=== PATIENT | male | born 1965 | race Native Hawaiian/Other Pacific Islander ===

== ENCOUNTER 2017-03-06 05:55 | Day surgery (SDC) | payer MEDICARE, OTHER ==
[2017-03-01 13:07] VITALS: BMI 35.2
[2017-03-06] MEDS ORDERED: SODIUM CHLORIDE 0.9% 1,000 ML IV SCH (06:03)
[2017-03-06 06:33] VITALS: TEMP 97.8
[2017-03-06] MEDS ORDERED: PROPOFOL 10 MG/ML 20 ML VIAL IV ONE (07:39)
[2017-03-06] MEDS ORDERED: LIDOCAINE 1% INJ 10MG/ML (20 ML MDV) ONE (07:39)
[2017-03-06 07:54] VITALS: RESP 16
[2017-03-06 09:28] VITALS: BP 100/65; PULSE 53
--- NOTE | 2017-03-06 13:51 | CE ---
CARDIAC ELECTROPHYSIOLOGY REPORT Max has a history of cardiomyopathy and a dual-chamber ICD. He was brought in for DFT testing under anesthesia. The P waves were excellent. Excellent sensing was noted. Pacing threshold was 0.5 V at 0.4 milliseconds. Ventricular pacing threshold 0.5 V at 0.4 milliseconds. R waves with excellent sensing was noted. Impedances were stable. DFT testing was performed under anesthesia. A shock and T wave protocol was used to induce ventricular fibrillation. This was adequately and appropriately detected. sensitivity successfully internally defibrillated with 10 joule shock. The charge time was 1.9 seconds. Shock impedance 93 ohms, delivered 10 joules. The device was then reprogrammed. The sensitivity was reprogrammed to 0.3 mV, appropriate antitachycardia pacing cardioversion defibrillation programmed VT zone has been programmed to 140 beats per minute. The patient has had a history of inducible slow ventricular tachycardia from the symptom in the past. The patient tolerated the procedure well without any acute complications. PLAN: The patient may go home when fully awake and continue with cardiac medications. Follow up with Dr. Garcia as before. MMODL / IJN: [id number] /
== END 2017-03-06 09:41 | disposition home or self-care (01) ==
LOC: CATHEP 05:55
PROVIDERS: ATTEND Internal Medicine Clinical Cardiac Electrophysiology
DX: I25.5 Ischemic cardiomyopathy (principal); Z45.02 Encounter for adjustment and management of automatic implantable cardiac defibrillator; F17.210 Nicotine dependence, cigarettes, uncomplicated; Z98.61 Coronary angioplasty status; I10 Essential (primary) hypertension; E78.5 Hyperlipidemia, unspecified; Z79.82 Long term (current) use of aspirin; Z79.899 Other long term (current) drug therapy
CPT/HCPCS: 93642; J2001; J2704

== ENCOUNTER 2017-08-04 01:34 | Observation (INO) | payer MEDICARE, OTHER ==
[2017-08-04 02:01] LABS: Basophils # (A) 0.1 k/uL (0-0.2); Basophils % (A) 1 %; Eosinophils # (A) 0.5 k/uL (0-0.7); Eosinophils % (A) 5 %; HCT 52.1 % (39.0-53.0); HGB 17.3 gm/dL (13.0-17.5); Lymphocytes # (A) 3.8 k/uL (1.0-4.8); Lymphocytes % (A) 35 %; MCH 30.3 pg (25.0-35.0); MCHC 33.3 g/dL (31.0-37.0); Mean Platelet Volume 6.4; Monocytes # (A) 0.6 k/uL (0-1.0); Monocytes % (A) 5 %; Neutrophils # (A) 5.9 k/uL (1.3-7.7); Neutrophils % (A) 53 %; Platelet Count 303 k/uL (150-450); RBC 5.72 m/uL (4.30-5.90); RDW 12.8 % (11.5-15.5); WBC 11.1 k/uL (3.8-10.6)
--- NOTE | 2017-08-04 02:02 | ED ---
Arrhythmia/Palpitations HPI <José Luis Blanton - Last Filed: 08/04/17 02:02> - General Source: patient, family, RN notes reviewed Mode of arrival: ambulatory Limitations: no limitations <Stormy Ann - Last Filed: 08/04/17 03:04> - General Chief Complaint: Arrhythmia/Palpitations Stated Complaint: Chest Pain Time Seen by Provider: 08/04/17 01:46 - History of Present Illness Initial Comments: This is a 51-year-old male with history of previous MIs who presents to the emergency department with chief complaint of palpitations. Patient states that he has had 2 MIs in the past. He states that he has a stent placed in his LAD and also has a defibrillator. Patient states that he woke up at approximately 12:30 AM this morning and was feeling uncomfortable. He states he could not fall back to sleep. He states that he felt some "fluttering" in his chest but denies any actual chest pain or pressure. He states that he felt like his throat was tightening up and complains of burning in his left arm and left leg. He states that this sensation was worsened with coughing. He denies any shortness of breath, nausea or vomiting, diaphoresis. He denies any abdominal pain. (Stormy Ann) - Related Data Home Medications Medication Instructions Recorded Confirmed Furosemide [Lasix] 40 mg PO DAILY 02/01/14 08/04/17 Lisinopril [Zestril] 1.25 mg PO DAILY 02/01/14 08/04/17 Pravastatin Sodium 80 mg PO HS 02/06/14 08/04/17 Metoprolol Tartrate 25 mg PO BID 03/01/17 08/04/17 Spironolactone [Aldactone] 25 mg PO DAILY 03/01/17 08/04/17 Previous Rx's Medication Instructions Recorded Aspirin 81 mg PO DAILY #30 chewable 02/09/14 Allergies Allergy/AdvReac Type Severity Reaction Status Date / Time No Known Allergies Allergy Verified 08/04/17 01:39 Review of Systems ROS Other: All systems not noted in ROS Statement are negative. <José Luis Blanton - Last Filed: 08/04/17 02:02> ROS Other: All systems not noted in ROS Statement are negative. <Stormy Ann - Last Filed: 08/04/17 03:04> ROS Statement: Those systems with pertinent positive or pertinent negative responses have been documented in the HPI. Past Medical History Past Medical History: Coronary Artery Disease (CAD), Hyperlipidemia, Hypertension, Myocardial Infarction (non Q-wave) Additional Past Medical History / Comment(s): may 2013, jun, jul 2013. see Dr Mayorga's H&P Last Myocardial Infarction Date:: jul 2013 History of Any Multi-Drug Resistant Organisms: None Reported Past Surgical History: AICD, Heart Catheterization With Stent Additional Past Surgical History / Comment(s): jun 2013 with heart stents; jul 2013 defib left upper chest Past Anesthesia/Blood Transfusion Reactions: No Reported Reaction Date of Last Stent Placement:: jun 2013 Type of Cardiac Device: AICD Device Placement Date:: jul 2013 Past Psychological History: No Psychological Hx Reported Smoking Status: Current every day smoker - Past Family History Mother Family Medical History: Diabetes Mellitus <Stormy Ann - Last Filed: 08/04/17 03:04> General Exam <José Luis Blanton - Last Filed: 08/04/17 02:02> Limitations: no limitations <MarissaStormy - Last Filed: 08/04/17 03:04> - General Exam Comments Initial Comments: General: Awake and alert, well-developed; in no apparent distress. and daughter are at bedside. HEENT: Head atraumatic, normocephalic. Pupils are equal, round and reactive to light. Extraocular movements intact. Oropharynx moist without erythema or exudate. Neck: Supple. Normal ROM. Cardiovascular: Regular rate and rhythm. No murmurs, rubs or gallops. Chest symmetrical. Respiratory: Lungs clear to auscultation bilaterally. No wheezes, rales or rhonchi. Normal respiratory effort with no use of accessory muscles. Abdomen: Soft, non-tender, non-distended. No rigidity, rebound or guarding. Normal bowel sounds in all 4 quadrants. Musculoskeletal: Normal ROM, no tenderness, strength 5/5 bilateral upper and lower extremities. No pedal edema. Pedal pulses are 2+ equal and palpable bilaterally. Skin: [place], warm and dry without rashes. Neurological: Alert and oriented x3. CN II-XII grossly intact. Speech is fluent and answers are appropriate. No focal neuro deficits. Finger-nose testing normal. No ataxia noted. NIH score equals 0. Psychiatric: Normal mood and affect. No overt signs of depression or anxiety noted. (Stormy Ann) Vital Signs 08/04/17 01:37 Temperature 97 F L Pulse Rate 83 Respiratory 20 Rate Blood Pressure 112/70 O2 Sat by Pulse 99 Oximetry Medical Decision Making <José Luis Blanton - Last Filed: 08/04/17 02:02> - Lab Data Result diagrams: 08/04/17 01:50 08/04/17 01:50 - Radiology Data Radiology results: report reviewed <Stormy Ann - Last Filed: 08/04/17 03:04> - Medical Decision Making EKG shows atrial paced rhythm at 71 bpm NM interval is 220 QRS is 90 QT interval 404 QTC is 439. Patient also has PVCs on this EKG there are no signs of ST segment elevation or depression. (José Luis Blanton) This is a 51-year-old male who presents to the emergency department with chief complaint of palpitations. Patient has a history of 2 myocardial infarctions and has a stent in his LAD. He also has a defibrillator. Patient presented to the emergency Department with complaint of chest fluttering and burning of his left arm and leg. Patient also felt like his throat was tight. Patient's vital signs are stable and he appears to be in no acute distress. Troponin and cardiac profile was within normal limits. Patient did have a slightly elevated white blood cell count of 11.1. Coags are were within normal limits. Chest x- ray revealed no acute abnormalities. CT brain without contrast was normal. Patient is neurovascularly intact. NIH score of 0. He was given aspirin and Nitropaste. Patient will be admitted for observation to Dr. Ireland with a diagnosis of atypical angina. Findings and plan were discussed with patient who is in agreement. All questions were answered. (Stormy Ann) - Lab Data Lab Results 08/04/17 08/04/17 08/04/17 Range/Units 01:50 01:50 01:50 WBC 11.1 H (3.8-10.6) k/uL RBC 5.72 (4.30-5.90) m/uL Hgb 17.3 (13.0-17.5) gm/dL Hct 52.1 (39.0-53.0) % MCV 91.0 (80.0-100.0) fL MCH 30.3 (25.0-35.0) pg MCHC 33.3 (31.0-37.0) g/dL RDW 12.8 (11.5-15.5) % Plt Count 303 (150-450) k/uL Neutrophils % 53 % Lymphocytes % 35 % Monocytes % 5 % Eosinophils % 5 % Basophils % 1 % Neutrophils # 5.9 (1.3-7.7) k/uL Lymphocytes # 3.8 (1.0-4.8) k/uL Monocytes # 0.6 (0-1.0) k/uL Eosinophils # 0.5 (0-0.7) k/uL Basophils # 0.1 (0-0.2) k/uL PT (9.0-12.0) sec INR (<1.2) APTT (22.0-30.0) sec Sodium 140 (137-145) mmol/L Potassium 3.9 (3.5-5.1) mmol/L Chloride 103 (98-107) mmol/L Carbon Dioxide 26 (22-30) mmol/L Anion Gap 11 mmol/L BUN 13 (9-20) mg/dL Creatinine 0.90 (0.66-1.25) mg/dL Est GFR (MDRD) Af Amer >60 (>60 ml/min/1.73 sqM) Est GFR (MDRD) Non-Af >60 (>60 ml/min/1.73 sqM) Glucose 103 H (74-99) mg/dL Calcium 9.6 (8.4-10.2) mg/dL Magnesium 2.1 (1.6-2.3) mg/dL Total Bilirubin 0.3 (0.2-1.3) mg/dL AST 25 (17-59) U/L ALT 41 (21-72) U/L Alkaline Phosphatase 105 (38-126) U/L Total Creatine Kinase 77 (55-170) U/L CK-MB (CK-2) 0.3 (0.0-2.4) ng/mL CK-MB (CK-2) Rel Index 0.4 Troponin I <0.012 (0.000-0.034) ng/mL Total Protein 7.1 (6.3-8.2) g/dL Albumin 3.9 (3.5-5.0) g/dL 08/04/17 Range/Units 01:50 WBC (3.8-10.6) k/uL RBC (4.30-5.90) m/uL Hgb (13.0-17.5) gm/dL Hct (39.0-53.0) % MCV (80.0-100.0) fL MCH (25.0-35.0) pg MCHC (31.0-37.0) g/dL RDW (11.5-15.5) % Plt Count (150-450) k/uL Neutrophils % % Lymphocytes % % Monocytes % % Eosinophils % % Basophils % % Neutrophils # (1.3-7.7) k/uL Lymphocytes # (1.0-4.8) k/uL Monocytes # (0-1.0) k/uL Eosinophils # (0-0.7) k/uL Basophils # (0-0.2) k/uL PT 9.7 (9.0-12.0) sec INR 1.0 (<1.2) APTT 23.3 (22.0-30.0) sec Sodium (137-145) mmol/L Potassium (3.5-5.1) mmol/L Chloride (98-107) mmol/L Carbon Dioxide (22-30) mmol/L Anion Gap mmol/L BUN (9-20) mg/dL Creatinine (0.66-1.25) mg/dL Est GFR (MDRD) Af Amer (>60 ml/min/1.73 sqM) Est GFR (MDRD) Non-Af (>60 ml/min/1.73 sqM) Glucose (74-99) mg/dL Calcium (8.4-10.2) mg/dL Magnesium (1.6-2.3) mg/dL Total Bilirubin (0.2-1.3) mg/dL AST (17-59) U/L ALT (21-72) U/L Alkaline Phosphatase (38-126) U/L Total Creatine Kinase (55-170) U/L CK-MB (CK-2) (0.0-2.4) ng/mL CK-MB (CK-2) Rel Index Troponin I (0.000-0.034) ng/mL Total Protein (6.3-8.2) g/dL Albumin (3.5-5.0) g/dL - Radiology Data Chest x-ray impression: No active cardiopulmonary disease. Normal heart. No change. CT brain without contrast impression: Negative computed tomography scan of the brain. (Stormy Ann) Disposition <José Luis Blanton - Last Filed: 08/04/17 02:02> Time of Disposition: 03:00 <Stormy Ann - Last Filed: 08/04/17 03:04> Clinical Impression: Atypical angina Disposition: ADMITTED IP TO THIS [facility] Condition: Stable Referrals: None,Stated [REFERRING] - 1-2 days
[2017-08-04 02:09] LABS: ALT 41 U/L (21-72); AST 25 U/L (17-59); Albumin 3.9 g/dL (3.5-5.0); Alkaline Phosphatase 105 U/L (38-126); Anion Gap 11 mmol/L; Blood Urea Nitrogen 13 mg/dL (9-20); Calcium 9.6 mg/dL (8.4-10.2); Carbon Dioxide 26 mmol/L (22-30); Chloride 103 mmol/L (98-107); Glucose 103 mg/dL (74-99); Potassium 3.9 mmol/L (3.5-5.1); Sodium 140 mmol/L (137-145); Total Bilirubin 0.3 mg/dL (0.2-1.3); Total Protein 7.1 g/dL (6.3-8.2)
--- NOTE | 2017-08-04 02:09 | XR ---
EXAMINATION TYPE: XR chest 2V DATE OF EXAM: 08/04/2017 COMPARISON: 01/17/2013 HISTORY: Dysrhythmia TECHNIQUE: Frontal and lateral views of the chest are obtained. FINDINGS: There is no heart failure nor confluent pneumonic infiltrate. Heart and mediastinum are no rmal. There is left axillary pacemaker with the lead tips in the right ventricle. There are chest michelet ds. There is no sign of pleural effusion. IMPRESSION: No active cardiopulmonary disease. Normal heart. No change.
[2017-08-04 02:15] LABS: Partial Thromboplastin Time 23.3 sec (22.0-30.0); Prothrombin Time 9.7 sec (9.0-12.0)
--- NOTE | 2017-08-04 02:19 | CT ---
EXAMINATION TYPE: CT brain wo con DATE OF EXAM: 08/04/2017 COMPARISON: NONE HISTORY: Left-sided numbness CT DLP: mGycm Automated exposure control for dose reduction was used. FINDINGS: Ventricles and sulci appear normal. There is no mass effect nor midline shift. There is no sign of in tracranial hemorrhage. The calvarium appears intact. IMPRESSION: NEGATIVE CT SCAN OF THE BRAIN.
[2017-08-04 02:24] LABS: Creatine Kinase 77 U/L (55-170)
[2017-08-04 02:36] LABS: Creatine Kinase MB 0.3 ng/mL (0.0-2.4); Troponin I <0.012 ng/mL (0.000-0.034)
[2017-08-04] MEDS ORDERED: NITROGLYCERIN OINT 1 INCH/GM PACKET TOPICAL STA (02:50)
[2017-08-04] MEDS ORDERED: ASPIRIN 81 MG PO STA (02:50)
[2017-08-04 04:27] VITALS: BMI 35.4
[2017-08-04] MEDS ORDERED: NITROGLYCERIN OINT 1 INCH/GM PACKET TOPICAL SCH (06:00)
[2017-08-04] MEDS ORDERED: NALOXONE 0.4 MG/ML 1 ML VIAL IV PRN (07:08)
--- NOTE | 2017-08-04 07:08 | P.HPIM ---
History of Present Illness H&P Date: 08/04/17 Chief Complaint: Palpitations 51-year-old male with history of CAD. Patient presented due to waking up will sudden in the middle of the night at 12:30 AM having uneasy feeling in his chest with palpitations and tightness without shortness of breath, no dizziness nor lightheadedness he denies any sweating. But when he sneezed he felt some burning sensation in his left arm and left leg. Patient expresses that in the past when he had heart attacks presentation was not typical he had 2 attacks in the past and both had atypical presentations so he was concerned that this could be another heart attack going on. He reported that the event lasted for about 2 hours when he was having uneasy sensation in the chest feeling tight and having the palpitations he was asking a family member to drive him to the ER symptoms started improving when he got to the ER and received the aspiration. Patient currently feels completely fine he sees Dr. Garcia for cardiology Patient was admitted under observation to rule out acute coronary syndrome. EKG showed atrial paced rhythm with prolonged AV conduction. Patient also reported that he is compliant with his medications and there were no recent changes, he denies taking any illegal drugs or alcohol. Review of Systems Constitutional: Patient denies fever, denies chills, denies night sweating, denies significant weight changes Eyes: Patient denies visual changes, denies eye pain ENT: Patient denies ear pain, denies rhinorrhea, denies sore throat Cardiovascular: As per HPI, patient denies peripheral leg edema, denies orthopnea, denies paroxysmal nocturnal dyspnea Respiratory:Patient denies cough, denies wheezing, denies shortness of breath Gastrointestinal: Patient denies diarrhea, denies constipation, denies nausea , denies vomiting, denies abdominal pain Genitourinary: Patient denies dysuria, denies hematuria, denies changes in urinary habits, denies genital lesions Musculoskeletal: Patient denies muscle pain, denies joint pain Psychiatric: Patient denies changes in mood or memory, denies suicidal ideation, denies anxiety Endocrine: Patient denies heat intolerance, denies cold intolerance, denies excessive thirst, denies polyuria Neurological: Patient denies focal neurologic deficits, denies weakness, denies numbness, denies tingling Hem/Lymphatic: Patient denies bleeding tendency, denies bruising, denies swollen lymph glands Allergic/Immun: Patient denies recent allergic reactions Skin: Patient denies rashes, denies pruritis, denies ulcers Past Medical History Past Medical History: Coronary Artery Disease (CAD), Hyperlipidemia, Hypertension, Myocardial Infarction (non Q-wave) Additional Past Medical History / Comment(s): may 2013, jun, jul 2013. see Dr Mayorga's H&P Last Myocardial Infarction Date:: jul 2013 History of Any Multi-Drug Resistant Organisms: None Reported Past Surgical History: AICD, Appendectomy, Heart Catheterization With Stent Additional Past Surgical History / Comment(s): jun 2013 with heart stents; jul 2013 defib left upper chest, right big toe amputation due to work injury Past Anesthesia/Blood Transfusion Reactions: No Reported Reaction Date of Last Stent Placement:: jun 2013 Type of Cardiac Device: AICD Device Placement Date:: jul 2013 Past Psychological History: No Psychological Hx Reported Additional Psychological History / Comment(s): He is not , lives with his father who is a primary caregiver for. Used to work in construction and in factory. Relates to prior utilization of recreational drugs and alcohol in the past. He does not have experience. He does not have animal exposures. Smoking Status: Current every day smoker Past Alcohol Use History: None Reported Additional Past Alcohol Use History / Comment(s): has smoked since age 15 6- cigarettes/day Past Drug Use History: None Reported - Past Family History Mother Family Medical History: Diabetes Mellitus Family Additional Family Medical History / Comment(s): History of CAD in his uncles and that Medications and Allergies Home Medications Medication Instructions Recorded Confirmed Type Furosemide [Lasix] 40 mg PO DAILY 02/01/14 08/04/17 History Lisinopril [Zestril] 1.25 mg PO DAILY 02/01/14 08/04/17 History Pravastatin Sodium 80 mg PO HS 02/06/14 08/04/17 History Aspirin 81 mg PO DAILY #30 chewable 02/09/14 08/04/17 Rx Metoprolol Tartrate 25 mg PO BID 03/01/17 08/04/17 History Spironolactone [Aldactone] 25 mg PO DAILY 03/01/17 08/04/17 History Allergies Allergy/AdvReac Type Severity Reaction Status Date / Time No Known Allergies Allergy Verified 08/04/17 01:39 Physical Exam Vitals: Vital Signs Temp Pulse Pulse Resp BP BP Pulse Ox 08/04/17 04:00 97.9 F 58 L 16 100/56 98 08/04/17 03:21 97.2 F L 54 L 18 102/69 99 08/04/17 01:37 97 F L 83 20 112/70 99 Intake and Output 08/03/17 08/03/17 08/04/17 14:59 22:59 06:59 Other: Voiding Method Toilet # Voids 2 Weight 111.9 kg Patient Weight 08/04/17 06:59 Weight 111.9 kg Constitutional: No acute distress, conversant, pleasant Eyes: Anicteric sclerae, moist conjunctiva, no lid-lag Pupils equal round reactive to light ENMT: NC/AT Oropharynx clear, no erythema, exudates Neck: Supple, FROM, no masses, or JVD No carotid bruits No thyromegaly Lungs: Clear to auscultation Clear to percussion Normal respiratory effort, no accessory muscle use Cardiovascular: Heart regular in rate and rhythm, distant heart sounds No murmurs, gallops, or rubs No peripheral edema Abdominal: Soft Nontender, no guarding, rebound or rigidity Abdomen moving with respiration Normoactive bowel sounds No hepatomegaly, No splenomegaly No palpable mass No abdominal wall hernia noted Skin: Normal temperature, tone, texture, turgor No induration No subcutaneous nodules No rash, lesions No ulcers Extremities: No digital cyanosis , patient has right fifth of dictation No clubbing Pedal pulses intact and symmetrical Radial pulses intact and symmetrical No calf tenderness Psychiatric: Alert and oriented to person, place and time Appropriate affect fair judgment Neuro Muscles Strength 5/5 in all 4 extremities Sensation to light touch grossly present throughout Cranial nerves II-XII grossly intact No focal sensory deficits Lymphatics: no palpable cervical or supraclavicular , or inguinal lymph nodes Results CBC & Chem 7: 08/04/17 01:50 08/04/17 01:50 Labs: Abnormal Lab Results - Last 24 Hours (Table) 08/04/17 08/04/17 Range/Units 01:50 01:50 WBC 11.1 H (3.8-10.6) k/uL Glucose 103 H (74-99) mg/dL Thrombosis Risk Factor Assmnt - Choose All That Apply Each Factor Represents 1 point: Age 41-60 years, Obesity (BMI >25) Thrombosis Risk Factor Assessment Total Risk Factor Score: 2 Thrombosis Risk Factor Assessment Level: Low Risk Assessment and Plan (1) Palpitations Narrative/Plan: Patient has an ICD device, his EKG is showing atrial paced rhythm with prolonged AV conduction Consider interrogation of the device Cardiology input Continue with metoprolol Follow-up electrolytes potassium and magnesium keep them above 4 and 2 respectively Current Visit: Yes Status: Acute Code(s): R00.2 - PALPITATIONS SNOMED Code (s): 13494768 (2) Atypical chest pain Narrative/Plan: Patient has multiple risk factors however presented with atypical chest pain/ tightness discomfort Troponins negative EKG showed no acute changes Continued psychotropics and cardiac monitoring Await cardiology input Obtain limited to the echo Current Visit: Yes Status: Acute Code(s): R07.89 - OTHER CHEST PAIN SNOMED Code(s): 032253296 (3) CAD (coronary artery disease) Narrative/Plan: Continue with aspirin and statin lisinopril metoprolol She has history of 2 stents in the past Current Visit: Yes Status: Chronic Code(s): I25.10 - ATHSCL HEART DISEASE OF [place] CORONARY ARTERY W/O ANG PCTRS SNOMED Code(s): 38259720 (4) Hypertension Narrative/Plan: Controlled now continue with lisinopril and metoprolol Current Visit: Yes Status: Chronic Code(s): I10 - ESSENTIAL (PRIMARY) HYPERTENSION SNOMED Code(s): 96479208 (5) Hyperlipidemia Narrative/Plan: Continue statin Current Visit: Yes Status: Chronic Code(s): E78.5 - HYPERLIPIDEMIA, UNSPECIFIED SNOMED Code(s): 72756796 (6) DVT prophylaxis Narrative/Plan: Heparin subcu 3 times a day Current Visit: Yes Status: Acute Code(s): ZOP8289 - SNOMED Code(s): 468996575 Plan: Surrogate decision-maker: Patient's son Jared CODE STATUS: Full code DVT prophylaxis: Heparin subcu 3 times a day Discussed with: Patient, ER, RN Anticipated discharge: [address]: Home A total of 50 minutes was spent on the care of this complex patient more than 50 % of the time was spent in counseling and care coordination.
[2017-08-04 08:43] LABS: Creatine Kinase 69 U/L (55-170)
[2017-08-04 08:55] LABS: Creatine Kinase MB 0.3 ng/mL (0.0-2.4); Troponin I <0.012 ng/mL (0.000-0.034)
[2017-08-04] MEDS ORDERED: METOPROLOL TARTRATE 25 MG TAB PO SCH (09:00)
[2017-08-04] MEDS ORDERED: FUROSEMIDE 40 MG TAB PO SCH (09:00)
[2017-08-04] MEDS ORDERED: LISINOPRIL 2.5 MG TAB PO SCH (09:00)
[2017-08-04] MEDS ORDERED: SPIRONOLACTONE 25 MG TAB PO SCH (09:00)
--- NOTE | 2017-08-04 09:08 | P.CRDCN ---
History of Present Illness Consult date: 08/04/17 Requesting physician: Crystal Ireland Consult reason: chest pain Chief complaint: Left arm and leg burning, throat tightness History of present illness: This is a 51-year-old gentleman who follows with Dr. Nicola Garcia in the office he has a history of hypertension, hyperlipidemia, nicotine dependence, patient underwent anterior myocardial infarction in 2012 at which time he underwent stent placement of the LAD. Patient also has ischemic cardiomyopathy with prior AICD implantation. Most recent echocardiogram with Doppler study was performed in 2015 which revealed an ejection fraction of 35%. According to the patient, he he woke up suddenly from sleep, states that he had significant pain and burning in his left arm and left leg, he states he could not get comfortable. Patient also states that he had a tight feeling in his lower throat area and occasional palpitations. He denies any chest discomfort, no difficulty in breathing. Patient states when he had his prior myocardial infarction, that he had significant tightness in his throat, this is why the patient was concerning came to the emergency room. Blood pressure on arrival here 112/70, heart rate in the 80s, this morning's blood pressure 92/50 with a heart rate in the 50s. His EKG shows an atrial paced rhythm with occasional PVC. Chest x-ray did not reveal any active cardiopulmonary disease. CAT scan of the brain normal. White blood cell count 11.1, hemoglobin 17.3, platelet count 303. Sodium 140, potassium 3.9, BUN 13, creatinine 0.9. Magnesium level 2.1 troponin 0.012. At the time of my examination this morning, patient no longer has any discomfort or numbness in his left leg or left arm. Denies any throat tightness this morning. Past Medical History Past Medical History: Coronary Artery Disease (CAD), Hyperlipidemia, Hypertension, Myocardial Infarction (non Q-wave) Additional Past Medical History / Comment(s): may 2013, jun, jul 2013. see Dr Mayorga's H&P Last Myocardial Infarction Date:: jul 2013 History of Any Multi-Drug Resistant Organisms: None Reported Past Surgical History: AICD, Appendectomy, Heart Catheterization With Stent Additional Past Surgical History / Comment(s): jun 2013 with heart stents; jul 2013 defib left upper chest, right big toe amputation due to work injury Past Anesthesia/Blood Transfusion Reactions: No Reported Reaction Date of Last Stent Placement:: jun 2013 Type of Cardiac Device: AICD Device Placement Date:: jul 2013 Past Psychological History: No Psychological Hx Reported Additional Psychological History / Comment(s): He is not , lives with his father who is a primary caregiver for. Used to work in construction and in factory. Relates to prior utilization of recreational drugs and alcohol in the past. He does not have experience. He does not have animal exposures. Smoking Status: Current every day smoker Past Alcohol Use History: None Reported Additional Past Alcohol Use History / Comment(s): has smoked since age 15 6- cigarettes/day Past Drug Use History: None Reported - Past Family History Mother Family Medical History: Diabetes Mellitus Family Additional Family Medical History / Comment(s): History of CAD in his uncles and that Medications and Allergies Home Medications Medication Instructions Recorded Confirmed Type Furosemide [Lasix] 40 mg PO DAILY 02/01/14 08/04/17 History Lisinopril [Zestril] 1.25 mg PO DAILY 02/01/14 08/04/17 History Pravastatin Sodium 80 mg PO HS 02/06/14 08/04/17 History Aspirin 81 mg PO DAILY #30 chewable 02/09/14 08/04/17 Rx Metoprolol Tartrate 25 mg PO BID 03/01/17 08/04/17 History Spironolactone [Aldactone] 25 mg PO DAILY 03/01/17 08/04/17 History Allergies Allergy/AdvReac Type Severity Reaction Status Date / Time No Known Allergies Allergy Verified 08/04/17 01:39 Physical Exam Vitals: Vital Signs Temp Pulse Pulse Pulse Resp BP BP 08/04/17 08:00 97.6 F 54 L 58 L 16 92/50 08/04/17 04:00 97.9 F 58 L 16 100/56 08/04/17 03:21 97.2 F L 54 L 18 102/69 08/04/17 01:37 97 F L 83 20 112/70 Pulse Ox 08/04/17 08:00 99 08/04/17 04:00 98 08/04/17 03:21 99 08/04/17 01:37 99 Intake and Output 08/03/17 08/04/17 08/04/17 22:59 06:59 14:59 Other: Voiding Method Toilet Toilet # Voids 2 Weight 111.9 kg PHYSICAL EXAMINATION: HEENT: Head is atraumatic, normocephalic. Pupils equal, round. Neck is supple. There is no elevated jugular venous pressure. HEART EXAMINATION: Heart S1, S2 normal. No murmur or gallop heard. CHEST EXAMINATION: Lungs are clear to auscultation and precussion. No chest wall tenderness is noted on palpation or with deep breathing. ABDOMEN: Soft, nontender. Bowel sounds are heard. No organomegaly noted. EXTREMITIES: 2+ peripheral pulses with no evidence of peripheral edema and no calf tenderness noted. NEUROLOGIC patient is awake, alert and oriented -3. . Results 08/04/17 01:50 08/04/17 01:50 Cardiac Enzymes 08/04/17 08/04/17 Range/Units 01:50 01:50 AST 25 (17-59) U/L CK-MB (CK-2) 0.3 (0.0-2.4) ng/mL Troponin I <0.012 (0.000-0.034) ng/mL Coagulation 08/04/17 Range/Units 01:50 PT 9.7 (9.0-12.0) sec APTT 23.3 (22.0-30.0) sec CBC 08/04/17 Range/Units 01:50 WBC 11.1 H (3.8-10.6) k/uL RBC 5.72 (4.30-5.90) m/uL Hgb 17.3 (13.0-17.5) gm/dL Hct 52.1 (39.0-53.0) % Plt Count 303 (150-450) k/uL Comprehensive Metabolic Panel 08/04/17 Range/Units 01:50 Sodium 140 (137-145) mmol/L Potassium 3.9 (3.5-5.1) mmol/L Chloride 103 (98-107) mmol/L Carbon Dioxide 26 (22-30) mmol/L BUN 13 (9-20) mg/dL Creatinine 0.90 (0.66-1.25) mg/dL Glucose 103 H (74-99) mg/dL Calcium 9.6 (8.4-10.2) mg/dL AST 25 (17-59) U/L ALT 41 (21-72) U/L Alkaline Phosphatase 105 (38-126) U/L Total Protein 7.1 (6.3-8.2) g/dL Albumin 3.9 (3.5-5.0) g/dL Current Medications Generic Name Dose Route Start Last Admin Trade Name Juan PRN Reason Stop Dose Admin Aspirin 325 mg 08/05/17 09:00 Aspirin PO DAILY [facility] Furosemide 40 mg 08/04/17 09:00 Lasix PO DAILY [facility] Lisinopril 1.25 mg 08/04/17 09:00 Zestril PO DAILY [facility] Metoprolol Tartrate 25 mg 08/04/17 09:00 Lopressor PO BID ANA Naloxone HCl 0.2 mg 08/04/17 07:08 Narcan IV Q2M PRN Opioid Reversal Nitroglycerin 1 inch 08/04/17 06:00 08/04/17 05:19 Nitro-Bid Oint TOPICAL Not Given Q6HR ANA Pravastatin Sodium 80 mg 08/04/17 21:00 Pravachol PO HS ANA Spironolactone 25 mg 08/04/17 09:00 Aldactone PO DAILY ANA Intake and Output 08/03/17 08/04/17 08/04/17 22:59 06:59 14:59 Other: Voiding Method Toilet Toilet # Voids 2 Weight 111.9 kg 08/04/17 01:50 08/04/17 01:50 EKG Interpretations (text) EKG shows an atrial paced rhythm with occasional PVC Assessment and Plan Plan: Assessment and plan #1 throat tightness, atypical symptoms for acute coronary syndrome. Troponin negative 1. EKG shows an atrial paced rhythm with occasional PVC. #2 left leg and left arm pain and numbness, CT of the brain negative #3 known history of coronary artery disease with prior anterior wall CT with LAD stenting in 2012 #4 ischemic cardiomyopathy with prior AICD # 5 hypertension #6 hyperlipidemia #7 nicotine dependence Plan We will obtain 2 subsequent troponins, patient symptoms very atypical for acute coronary syndrome. We will request an echocardiogram with Doppler study be performed. Decrease aspirin to 81 mg daily. Patient has an appointment with Dr. Nicola Garcia in the office Sunday morning as well as a device check. Further recommendations to follow. DNP note has been reviewed, I agree with a documented findings and plan of care. Patient was seen and examined.
[2017-08-04 12:09] VITALS: PULSE 58
[2017-08-04 12:12] VITALS: BP 106/56; RESP 18; TEMP 97.8
--- NOTE | 2017-08-04 12:43 | ECHOF ---
Referral Reason:palpitations, LVF, wall motion MEASUREMENTS -------- HEIGHT: 177.8 cm WEIGHT: 111.6 kg BP: 100/56 IVSd: 1.5 cm (0.6 - 1.1) LVIDd: 4.2 cm (3.9 - 5.3) LVPWd: 1.4 cm (0.6 - 1.1) EDV(Teich): 78 ml IVSs: 1.8 cm LVIDs: 3.5 cm LVPWs: 1.6 cm ESV(Teich): 52 ml EF(Teich): 33 % %FS: 16 % SV(Teich): 26 ml RVIDd: 2.8 cm (< 3.3) LVLd A4C: 7.2 cm LVEDV MOD A4C: 97 ml LVLs A4C: 7.0 cm LVESV MOD A4C: 64 ml LVEF MOD A4C: 35 % SV MOD A4C: 34 ml LVLd A2C: 7.0 cm LVEDV MOD A2C: 145 ml LVLs A2C: 6.6 cm LVESV MOD A2C: 101 ml LVEF MOD A2C: 30 % SV MOD A2C: 44 ml EF Biplane: 31 % LVEDV MOD BP: 120 ml LVESV MOD BP: 83 ml LALs A4C: 5.2 cm LAAs A4C: 10.0 cm LAESV A-L A4C: 16 ml LAESV MOD A4C: 14 ml LALs A2C: 4.3 cm LAAs A2C: 12.5 cm LAESV A-L A2C: 30 ml LAESV MOD A2C: 29 ml LAESV(A-L): 24 ml LAESV Index (A-L): 10.64 ml/m Ao Diam: 3.1 cm (2.0 - 3.7) LA Diam: 3.4 cm (2.7 - 3.8) AV Cusp: 1.9 cm (1.5 - 2.6) EPSS: 1.1 cm MV E Wood: 0.78 m/s MV DecT: 300 ms MV Dec Bremer: 2.6 m/s MV A Wood: 0.91 m/s MV E/A Ratio: 0.85 AV Vmax: 1.17 m/s AV maxP.43 mmHg TR Vmax: 1.55 m/s TR maxP.59 mmHg RAP: 5.00 mmHg RVSP: 14.59 mmHg MV EF SLOPE: 113.06 mm/s (70 - 150) MV EXCURSION: 2.08 cm (> 18.000) FINDINGS -------- Paced rhythm. This was a technically difficult study with suboptimal views. The left ventricular size is normal. There is moderate concentric left ventricular hypertrophy. T here is moderate global hypokinesis of LV . Overall left ventricular systolic function is moderate- severely impaired with, an EF between 30 - 35 %. Septal Hypokinesis [place] Hypokinesis. The right ventricle is normal in size. The right ventricular systolic function is moderately impair ed. Normal LA size by volume 22+/-6 ml/m2. Electronic pacemaker lead seen in the right ventricular cavity. RA appears enlarged. 3ml of Lumason was utilized for enhancement of images. The aortic valve is trileaflet, and appears structurally normal. No aortic stenosis or regurgitation. The mitral valve leaflets are mildly thickened. There is trace to mild mitral regurgitation. Trace tricuspid regurgitation present. Right ventricular systolic pressure is normal at < 35 mmHg. There is no evidence of pulmonary hypertension. The pulmonic valve was not well visualized. The aortic root size is normal. Normal inferior vena cava with less than 50% inspiratory collapse consistent with estimated right atr ial pressure of 15 mmHg. The pericardium is normal. There is no pericardial effusion. CONCLUSIONS -------- 1. Paced rhythm. 2. This was a technically difficult study with suboptimal views. 3. The left ventricular size is normal. 4. There is moderate concentric left ventricular hypertrophy. 5. There is moderate global hypokinesis of LV . 6. Overall left ventricular systolic function is moderate-severely impaired with, an EF between 30 - 35 %. 7. Septal Hypokinesis 8. [place] Hypokinesis. 9. The right ventricular systolic function is moderately impaired. 10. Normal LA size by volume 22+/-6 ml/m2. 11. Electronic pacemaker lead seen in the right ventricular cavity. 12. RA appears enlarged. 13. 3ml of Lumason was utilized for enhancement of images. 14. The aortic valve is trileaflet, and appears structurally normal. No aortic stenosis or regurgitat ion. 15. The mitral valve leaflets are mildly thickened. 16. There is trace to mild mitral regurgitation. 17. Trace tricuspid regurgitation present. 18. Right ventricular systolic pressure is normal at < 35 mmHg. 19. There is no evidence of pulmonary hypertension. 20. The pulmonic valve was not well visualized. 21. The aortic root size is normal. 22. Normal inferior vena cava with less than 50% inspiratory collapse consistent with estimated right atrial pressure of 15 mmHg. 23. There is no pericardial effusion. SUPPORT SERVICES TECH: Jameel Cowart RDCS
[2017-08-04 14:37] LABS: Creatine Kinase 68 U/L (55-170)
[2017-08-04 14:49] LABS: Creatine Kinase MB 0.3 ng/mL (0.0-2.4); Troponin I <0.012 ng/mL (0.000-0.034)
--- NOTE | 2017-08-04 15:54 | P.DS ---
Providers Date of admission: 08/04/17 03:24 Expected date of discharge: 08/04/17 Attending physician: Crystal Ireland MD Consults: 08/04/17 03:23 Consult Physician Urgent Consulting Provider: [facility] Consult Reason/Comments: Atypical angina Do you want consulting provider notified?: Yes Primary care physician: Elizabeth Heard - Discharge Diagnosis(es) (1) Atypical chest pain Current Visit: Yes Status: Acute (2) CAD (coronary artery disease) Current Visit: Yes Status: Chronic (3) Hypertension Current Visit: Yes Status: Chronic (4) Ischemic cardiomyopathy Current Visit: Yes Status: Acute Hospital Course: The patient is a 51-year-old male with a past history of coronary disease with stenting ischemic cardiomyopathy post ICD placement that was placed on observation for atypical chest pain, his EKG showed atrial paced rhythm with prolonged AV conduction, he had 3 sets of cardiac enzymes which are negative with no suggestion of any acute ischemia. His electrocardiogram showed an EF of 30-35% which was essentially unchanged from his prior echocardiogram. The patient was seen by cardiology Dr. Pendleton and subsequently cleared for discharge with plans to follow up in clinic. This discharge process took less than 30 minutes Patient Condition at Discharge: Stable Plan - Discharge Summary New Discharge Prescriptions: Continue Lisinopril [Zestril] 1.25 mg PO DAILY Furosemide [Lasix] 40 mg PO DAILY Pravastatin Sodium 80 mg PO HS Aspirin 81 mg PO DAILY #30 chewable Metoprolol Tartrate 25 mg PO BID Spironolactone [Aldactone] 25 mg PO DAILY Nitroglycerin Sl Tabs [Nitrostat] 0.4 mg SUBLINGUAL Q5M PRN PRN Reason: Chest Pain Discharge Medication List Furosemide [Lasix] 40 mg PO DAILY 02/01/14 [History] Lisinopril [Zestril] 1.25 mg PO DAILY 02/01/14 [History] Pravastatin Sodium 80 mg PO HS 02/06/14 [History] Aspirin 81 mg PO DAILY #30 chewable 02/09/14 [Rx] Metoprolol Tartrate 25 mg PO BID 03/01/17 [History] Spironolactone [Aldactone] 25 mg PO DAILY 03/01/17 [History] Nitroglycerin Sl Tabs [Nitrostat] 0.4 mg SUBLINGUAL Q5M PRN 08/04/17 [History] Follow up Appointment(s)/Referral(s): Angelina Garcia MD [STAFF PHYSICIAN] - 1 Week None,Stated [REFERRING] - 1-2 days Activity/Diet/Wound Care/Special Instructions: keep follow up appt with Dr. Destiny Garcia on 08/13/17.
[2017-08-04] MEDS ORDERED: PRAVASTATIN SODIUM 80 MG TAB PO SCH (21:00)
[2017-08-05] MEDS ORDERED: ASPIRIN 325 MG TAB PO SCH (09:00)
[2017-08-05] MEDS ORDERED: ASPIRIN 81 MG PO SCH (09:00)
== END 2017-08-04 16:30 | disposition home or self-care (01) ==
LOC: EC 01:34 → 3OBS 03:24
PROVIDERS: ADMIT Internal Medicine; ATTEND Internal Medicine
DX: R07.89 Other chest pain (principal); R00.2 Palpitations; R20.0 Anesthesia of skin; M79.602 Pain in left arm; M79.605 Pain in left leg; R07.0 Pain in throat; I25.10 Atherosclerotic heart disease of native coronary artery without angina pectoris; I25.2 Old myocardial infarction; E78.5 Hyperlipidemia, unspecified; I10 Essential (primary) hypertension; I25.5 Ischemic cardiomyopathy; D72.829 Elevated white blood cell count, unspecified; F17.210 Nicotine dependence, cigarettes, uncomplicated; E66.9 Obesity, unspecified; Z68.35 Body mass index [BMI] 35.0-35.9, adult; Z79.899 Other long term (current) drug therapy; Z95.5 Presence of coronary angioplasty implant and graft; Z95.810 Presence of automatic (implantable) cardiac defibrillator; Z83.3 Family history of diabetes mellitus; Z79.82 Long term (current) use of aspirin
CPT/HCPCS: 99285; 36415; 93005; 80053; 82550; 82553; 83735; 84484; 85025; 85610; 85730; 71046; 70450; G0378; C8929; Q9950; 93306

== ENCOUNTER 2018-03-14 19:25 | Emergency (ER) | payer MEDICARE ==
[2018-03-14 19:53] VITALS: RESP 18
--- NOTE | 2018-03-14 21:45 | XR ---
EXAMINATION TYPE: XR chest 2V DATE OF EXAM: 03/14/2018 COMPARISON: 08/04/2017 HISTORY: Chest pain TECHNIQUE: Frontal and lateral views of the chest are obtained. FINDINGS: There is no heart failure nor confluent pneumonic infiltrate. Costophrenic angles are nik r. Heart size is normal. There is left axillary pacemaker with the lead tips in the right ventricle. IMPRESSION: No active cardiopulmonary disease. No change.
[2018-03-14 21:47] LABS: Basophils # (A) 0.1 k/uL (0-0.2); Basophils % (A) 1 %; Eosinophils # (A) 0.3 k/uL (0-0.7); Eosinophils % (A) 3 %; HGB 17.6 gm/dL (13.0-17.5); Lymphocytes # (A) 3.1 k/uL (1.0-4.8); Lymphocytes % (A) 30 %; MCH 30.9 pg (25.0-35.0); MCHC 33.8 g/dL (31.0-37.0); MCV 91.4 fL (80.0-100.0); Monocytes # (A) 0.7 k/uL (0-1.0); Monocytes % (A) 6 %; Neutrophils # (A) 6.1 k/uL (1.3-7.7); Neutrophils % (A) 59 %; Platelet Count 233 k/uL (150-450); RBC 5.69 m/uL (4.30-5.90); RDW 13.1 % (11.5-15.5); WBC 10.4 k/uL (3.8-10.6)
--- NOTE | 2018-03-14 21:59 | ED ---
General Adult HPI - General Source: patient Limitations: no limitations <Christopher Dias - Last Filed: 03/14/18 21:56> <Dirk Bearden - Last Filed: 03/14/18 23:19> - General Chief complaint: Chest Pain Stated complaint: poss pneumonia Time Seen by Provider: 03/14/18 20:15 - History of Present Illness Initial comments: Dictation was produced using [employer] dictation software. please excuse any grammatical, word or spelling errors. Chief Complaint: 52 year old male past medical history of cardiac myopathy, multiple MIs status post a fairly presents with pleuritic chest pain. History of Present Illness: Patient states he woke up with regular rate and chest pain. He states his symptoms started this morning. Patient was concerned maybe that this might represent early pneumonia. Patient denies any crushing substernal chest pressure that radiates to the shoulders. No associated diaphoresis. Patient talked to some friends and told him that his symptoms may represent early pneumonia. Patient denies any constitutional symptoms. He states she's been coughing however not productive of any sputum. Patient is a chronic tobacco abuser. Denies any shortness of breath at this time. The ROS documented in this emergency department record has been reviewed and confirmed by me. Those systems with pertinent positive or negative responses have been documented in the HPI. All other systems are other negative and/or noncontributory. (Christopher Dias) - Related Data Home Medications Medication Instructions Recorded Confirmed Furosemide [Lasix] 40 mg PO DAILY 02/01/14 03/14/18 Lisinopril [Zestril] 1.25 mg PO DAILY 02/01/14 03/14/18 Pravastatin Sodium 80 mg PO HS 02/06/14 03/14/18 Metoprolol Tartrate 25 mg PO BID 03/01/17 03/14/18 Spironolactone [Aldactone] 25 mg PO DAILY 03/01/17 03/14/18 Previous Rx's Medication Instructions Recorded Aspirin 81 mg PO DAILY #30 chewable 02/09/14 Ibuprofen [Motrin] 600 mg PO Q8HR PRN #20 tab 03/14/18 Allergies Allergy/AdvReac Type Severity Reaction Status Date / Time No Known Allergies Allergy Verified 03/14/18 20:16 Review of Systems ROS Other: All systems not noted in ROS Statement are negative. <Christopher Dias - Last Filed: 03/14/18 21:56> ROS Other: All systems not noted in ROS Statement are negative. <Dirk Bearden - Last Filed: 03/14/18 23:19> ROS Statement: Those systems with pertinent positive or pertinent negative responses have been documented in the HPI. Past Medical History Past Medical History: Coronary Artery Disease (CAD), Hyperlipidemia, Hypertension, Myocardial Infarction (non Q-wave) Additional Past Medical History / Comment(s): may 2013, jun, jul 2013. see Dr Mayorga's H&P Last Myocardial Infarction Date:: jul 2013 History of Any Multi-Drug Resistant Organisms: None Reported Past Surgical History: AICD, Appendectomy, Heart Catheterization With Stent Additional Past Surgical History / Comment(s): jun 2013 with heart stents; jul 2013 defib left upper chest, right big toe amputation due to work injury Past Anesthesia/Blood Transfusion Reactions: No Reported Reaction Date of Last Stent Placement:: jun 2013 Type of Cardiac Device: AICD Device Placement Date:: jul 2013 Past Psychological History: No Psychological Hx Reported Smoking Status: Current every day smoker Past Alcohol Use History: None Reported Past Drug Use History: None Reported - Past Family History Mother Family Medical History: Diabetes Mellitus Family Additional Family Medical History / Comment(s): History of CAD in his uncles and that <Christopher Dias - Last Filed: 03/14/18 21:56> General Exam Limitations: no limitations <Christopher Dias - Last Filed: 03/14/18 21:56> <Dirk Bearden - Last Filed: 03/14/18 23:19> - General Exam Comments Initial Comments: PHYSICAL EXAM: General Impression: Alert and oriented x3, not in acute distress HEENT: Normocephalic atraumatic, extra-ocular movements intact, pupils equal and reactive to light bilaterally, mucous membranes moist. Cardiovascular: Heart regular rate and rhythm, S1&S2 audible, no murmurs, rubs or gallops Chest: Mild bilateral lung crackles Abdomen: Bowel sounds present, abdomen soft, non-tender, non-distended, no organomegaly Musculoskeletal: Pulses present and equal in all extremities, no peripheral edema Motor: Power 5/5 bilaterally, no focal deficits noted Neurological: CN II-XII grossly intact, no focal motor or sensory deficits noted Skin: Intact with no visualized rashes Psych: Normal affect and mood (Christopher Dias) Vital Signs 03/14/18 03/14/18 19:49 23:06 Temperature 98.0 F 97.2 F L Pulse Rate 58 L 50 L Respiratory 18 18 Rate Blood Pressure 104/68 118/73 O2 Sat by Pulse 97 99 Oximetry Medical Decision Making - Lab Data Result diagrams: 03/14/18 21:33 <Christopher Dias - Last Filed: 03/14/18 21:56> - Lab Data Result diagrams: 03/14/18 21:33 03/14/18 21:33 <Dirk Bearden - Last Filed: 03/14/18 23:19> - Medical Decision Making ED course: 52-year-old male with past medical history of ischemic cardiomyopathy , multiple MIs status post a fairly presents with atypical chest pain. Vital signs upon arrival are within acceptable limits. EKG shows no acute processes. Chest x-ray obtained showing no acute processes. CBC is unremarkable. Patient is sent out to oncoming physician for follow-up of labs and to determine final disposition. EKG Interpretation: A 12 lead EKG was obtained. It was interpreted by myself and attending physician. There is a P wave before every QRS complex. Rate is 98. Rhythm is HO paced rhythm, NM interval 210, QRS 74, QTC 469. QT is not prolonged. No ST segment depression or elevation. Overall, this EKG is unremarkable (Christopher Dias) - Lab Data Lab Results 03/14/18 03/14/18 Range/Units 21:33 21:33 WBC 10.4 (3.8-10.6) k/uL RBC 5.69 (4.30-5.90) m/uL Hgb 17.6 H (13.0-17.5) gm/dL Hct 52.0 (39.0-53.0) % MCV 91.4 (80.0-100.0) fL MCH 30.9 (25.0-35.0) pg MCHC 33.8 (31.0-37.0) g/dL RDW 13.1 (11.5-15.5) % Plt Count 233 (150-450) k/uL Neutrophils % 59 % Lymphocytes % 30 % Monocytes % 6 % Eosinophils % 3 % Basophils % 1 % Neutrophils # 6.1 (1.3-7.7) k/uL Lymphocytes # 3.1 (1.0-4.8) k/uL Monocytes # 0.7 (0-1.0) k/uL Eosinophils # 0.3 (0-0.7) k/uL Basophils # 0.1 (0-0.2) k/uL Sodium 137 (137-145) mmol/L Potassium 4.4 (3.5-5.1) mmol/L Chloride 102 (98-107) mmol/L Carbon Dioxide 25 (22-30) mmol/L Anion Gap 10 mmol/L BUN 12 (9-20) mg/dL Creatinine 0.87 (0.66-1.25) mg/dL Est GFR (CKD-EPI)AfAm >90 (>60 ml/min/1.73 sqM) Est GFR (CKD-EPI)NonAf >90 (>60 ml/min/1.73 sqM) Glucose 90 (74-99) mg/dL Calcium 9.2 (8.4-10.2) mg/dL Disposition <Christopher Dias - Last Filed: 03/14/18 21:56> Is patient prescribed a controlled substance at d/c from ED?: No <Dirk Bearden - Last Filed: 03/14/18 23:19> Clinical Impression: Atypical chest pain Disposition: HOME SELF-CARE Condition: Good Instructions: Chest Pain (ED) Prescriptions: Ibuprofen [Motrin] 600 mg PO Q8HR PRN #20 tab PRN Reason: Pain Referrals: Elizabeth Heard MD [Primary Care Provider] - 1-2 days
[2018-03-14 22:03] LABS: Anion Gap 10 mmol/L; Blood Urea Nitrogen 12 mg/dL (9-20); Calcium 9.2 mg/dL (8.4-10.2); Carbon Dioxide 25 mmol/L (22-30); Chloride 102 mmol/L (98-107); Glucose 90 mg/dL (74-99); Potassium 4.4 mmol/L (3.5-5.1); Sodium 137 mmol/L (137-145)
[2018-03-14 23:07] VITALS: BP 118/73; PULSE 50; TEMP 97.2
== END 2018-03-14 23:24 | disposition home or self-care (01) ==
LOC: EC 19:25
DX: R07.89 Other chest pain (principal); R05 Cough; I25.10 Atherosclerotic heart disease of native coronary artery without angina pectoris; E78.5 Hyperlipidemia, unspecified; I10 Essential (primary) hypertension; I25.2 Old myocardial infarction; F17.200 Nicotine dependence, unspecified, uncomplicated; Z79.899 Other long term (current) drug therapy; Z95.5 Presence of coronary angioplasty implant and graft; Z95.810 Presence of automatic (implantable) cardiac defibrillator; Z82.49 Family history of ischemic heart disease and other diseases of the circulatory system
CPT/HCPCS: 36415; 71046; 80048; 85025; 93005; 99285

== ENCOUNTER 2018-08-14 15:07 | Observation (INO) | payer MEDICARE ==
--- NOTE | 2018-08-14 16:00 | ED ---
General Adult HPI - General Chief complaint: Shortness of Breath Stated complaint: chest pain Time Seen by Provider: 08/14/18 15:24 Source: patient, family, RN notes reviewed, old records reviewed Mode of arrival: wheelchair Limitations: no limitations - History of Present Illness Initial comments: Chief complaint and history of present illness this is a 52-year-old male here with family. The patient reports he is having sensation of throat tightening. He states these are the same symptoms he's had on 3 previous occasions over the past multiple years which resulted in having heart attacks. Patient denies any other associated problems such as sweats or radiation of pain. He also adds that yesterday while drinking coffee also went down the wrong tube and he stood up and coughed several times and fell forward having what appears to be a synco pal episode. Patient complains of having had epistaxis yesterday. Mild soreness to his nose now. No other symptoms or problems since then. Denies any headache or neck pain. - Related Data Home Medications Medication Instructions Recorded Confirmed Furosemide [Lasix] 40 mg PO DAILY 02/01/14 08/14/18 Lisinopril [Zestril] 1.25 mg PO DAILY 02/01/14 08/14/18 Pravastatin Sodium 80 mg PO HS 02/06/14 08/14/18 Metoprolol Tartrate 25 mg PO BID 03/01/17 08/14/18 Spironolactone [Aldactone] 25 mg PO DAILY 03/01/17 08/14/18 metFORMIN HCL [Glucophage] 500 mg PO BID 08/14/18 08/14/18 Previous Rx's Medication Instructions Recorded Aspirin 81 mg PO DAILY #30 chewable 02/09/14 Allergies Allergy/AdvReac Type Severity Reaction Status Date / Time No Known Allergies Allergy Verified 08/14/18 15:39 Review of Systems ROS Statement: Those systems with pertinent positive or pertinent negative responses have been documented in the HPI. Review of systems no headache or visual acuity changes slight dizziness. Mild soreness to his nose. Denies neck pain denies chest pain states he has on-again off-again sensations of a tightness to his throat the last several seconds and goes away. He states this is similar to the pain or sensation he had when he had a heart attack in the past. Last one being 5 years ago. He does have 1 stent and an AICD. Patient otherwise denies any chest pain, no abdominal pain denies nausea vomiting denies any neuro deficits other than being slightly dizzy. All systems reviewed. Past medical problems significant for coronary artery disease with one stent and an AICD placed. I still history of hyperlipidemia. Patient states he does not have hypertension but does take medications blood pressure issues associated with his heart and Lasix for edema. Patient's past surgeries also include appendectomy and 2 or 3 heart cath. 1 stent placed. Family history noncontributory. ALLERGIES none. Denies drinking, smokes daily. Encouraged to stop. ROS Other: All systems not noted in ROS Statement are negative. Past Medical History Past Medical History: Coronary Artery Disease (CAD), Hyperlipidemia, Hypertension, Myocardial Infarction ([place]), Myocardial Infarction (non Q-wave) Additional Past Medical History / Comment(s): may 2013, jun, jul 2013. see Dr Mayorga's H&P Last Myocardial Infarction Date:: jul 2013 History of Any Multi-Drug Resistant Organisms: None Reported Past Surgical History: AICD, Appendectomy, Heart Catheterization With Stent Additional Past Surgical History / Comment(s): jun 2013 with heart stents; jul 2013 defib left upper chest, right big toe amputation due to work injury Past Anesthesia/Blood Transfusion Reactions: No Reported Reaction Date of Last Stent Placement:: jun 2013 Type of Cardiac Device: AICD Device Placement Date:: jul 2013 Past Psychological History: No Psychological Hx Reported Smoking Status: Current every day smoker Past Alcohol Use History: None Reported Past Drug Use History: None Reported - Past Family History Mother Family Medical History: Diabetes Mellitus Family Additional Family Medical History / Comment(s): History of CAD in his uncles and that General Exam - General Exam Comments Initial Comments: General: The patient is awake and alert, in no distress, and does not appear acutely ill. Chief complaint of a tightness to his throat some times lasting several seconds currently gone. On again off again since 11 AM today. Patient also had a syncopal episode yesterday. Current vital signs temperature 98.4 pulse 60 respiratory rate 16 pulse ox 90% room air blood pressure 126/81 Eye: Pupils are equal, round and reactive to light, extra-ocular movements are intact; there is normal conjunctiva bilaterally. No signs of icterus. Ears, nose, mouth and throat: There are moist mucous membranes and no oral lesions. Patient has a complaint of sorefalling yesterday. Yesterday he had epistaxis. No septal hematoma appreciated on examination. No bony crepitus appreciated when the patient moves his own nose. Neck: The neck is supple, there is no tenderness, no complaint of neck pain. No stridor, no carotid bruit. Cardiovascular: There is a regular rate and rhythm. No murmur, rub or gallop is appreciated. Respiratory: Lungs are clear to auscultation, respirations are non-labored, breath sounds are equal. No wheezes, stridor, rales, or rhonchi. Gastrointestinal: Soft, non-distended, non-tender abdomen without masses or organomegaly noted. There is no rebound or guarding present. No CVA tenderness. Bowel sounds are unremarkable. Back: There is no tenderness to palpation in the midline. There is no obvious deformity. No rashes noted. Musculoskeletal: Normal ROM, no tenderness, mild peripheral edema.. There is no calf tenderness or swelling. Sensation intact. Pulses equal bilaterally 2+. Neurological: CN II-XII intact, There are no obvious motor or sensory deficits. Coordination a ppears grossly intact. Speech is normal. Denies any focal or lateralizing defects. Slightly dizzy. He did have a syncopal episode yesterday after standing up or coughing. Skin: Skin is warm and dry and no rashes or lesions are noted. Psychiatric: Cooperative, Limitations: no limitations Course Vital Signs 08/14/18 08/14/18 15:13 16:02 Temperature 98.4 F Pulse Rate 60 Respiratory 16 18 Rate Blood Pressure 126/81 O2 Sat by Pulse 98 Oximetry EKG Findings - EKG Comments: EKG Findings:: EKG was at 1540 showing marked sinus arrhythmia with fusion beats. Patient does have an AICD but it was not picked up on this particular EKG. Low QRS age undetermined anterior and inferior infarct. This EKG was compared to one done on 08/04/2017 and they are similar. Ventricular rate 86, ME interval is 176 QRS is 90 QT [address] Magaña Medical Decision Making - Medical Decision Making Medical decision making; this is a 52-year-old male who reports that he was having some funny sensation to his throat tightness sensation which she has had in the past when at that time cannot be myocardial infarctions. Patient also reports she has syncopal episode yesterday. The patient's labs show white count of 8.7 hemoglobin 17 hematocrit 55. Potassium 4.3. BUN 11 creatinine 0.83 with a GFR greater than 90. Troponin less than 0.012 BNP of only 505. The patient reports the discomfort started approximately 6 hours ago. The patient has not had any discomfort while in emergency room. The case discussed with , patient had heparin started and she'll be admitted with diagnosis of atypical chest pain. We did discuss unstable angina inasmuch as the patient has had similar symptoms in the past that turned out to be acute non-Q MIs. His troponin is normal and the initial discomfort started over 6 hours ago. - Lab Data Result diagrams: 08/14/18 16:34 08/14/18 16:34 Lab Results 08/14/18 08/14/18 08/14/18 Range/Units 16:34 16:34 16:34 WBC 8.7 (3.8-10.6) k/uL RBC 6.07 H (4.30-5.90) m/uL Hgb 17.7 H (13.0-17.5) gm/dL Hct 55.5 H (39.0-53.0) % MCV 91.4 (80.0-100.0) fL MCH 29.1 (25.0-35.0) pg MCHC 31.8 (31.0-37.0) g/dL RDW 12.9 (11.5-15.5) % Plt Count 240 (150-450) k/uL Neutrophils % 63 % Lymphocytes % 25 % Monocytes % 7 % Eosinophils % 3 % Basophils % 1 % Neutrophils # 5.5 (1.3-7.7) k/uL Lymphocytes # 2.1 (1.0-4.8) k/uL Monocytes # 0.6 (0-1.0) k/uL Eosinophils # 0.3 (0-0.7) k/uL Basophils # 0.1 (0-0.2) k/uL PT (9.0-12.0) sec INR (<1.2) APTT (22.0-30.0) sec D-Dimer (<0.60) mg/L FEU Sodium 138 (137-145) mmol/L Potassium 4.3 (3.5-5.1) mmol/L Chloride 104 (98-107) mmol/L Carbon Dioxide 24 (22-30) mmol/L Anion Gap 10 mmol/L BUN 11 (9-20) mg/dL Creatinine 0.83 (0.66-1.25) mg/dL Est GFR (CKD-EPI)AfAm >90 (>60 ml/min/1.73 sqM) Est GFR (CKD-EPI)NonAf >90 (>60 ml/min/1.73 sqM) Glucose 82 (74-99) mg/dL Calcium 9.8 (8.4-10.2) mg/dL Magnesium 2.1 (1.6-2.3) mg/dL Total Bilirubin 0.5 (0.2-1.3) mg/dL AST 28 (17-59) U/L ALT 43 (21-72) U/L Alkaline Phosphatase 98 (38-126) U/L Troponin I (0.000-0.034) ng/mL NT-Pro-B Natriuret Pep 505 pg/mL Total Protein 7.2 (6.3-8.2) g/dL Albumin 3.9 (3.5-5.0) g/dL 08/14/18 08/14/18 Range/Units 16:34 17:12 WBC (3.8-10.6) k/uL RBC (4.30-5.90) m/uL Hgb (13.0-17.5) gm/dL Hct (39.0-53.0) % MCV (80.0-100.0) fL MCH (25.0-35.0) pg MCHC (31.0-37.0) g/dL RDW (11.5-15.5) % Plt Count (150-450) k/uL Neutrophils % % Lymphocytes % % Monocytes % % Eosinophils % % Basophils % % Neutrophils # (1.3-7.7) k/uL Lymphocytes # (1.0-4.8) k/uL Monocytes # (0-1.0) k/uL Eosinophils # (0-0.7) k/uL Basophils # (0-0.2) k/uL PT 9.7 (9.0-12.0) sec INR 0.9 (<1.2) APTT 24.4 (22.0-30.0) sec D-Dimer 0.34 (<0.60) mg/L FEU Sodium (137-145) mmol/L Potassium (3.5-5.1) mmol/L Chloride (98-107) mmol/L Carbon Dioxide (22-30) mmol/L Anion Gap mmol/L BUN (9-20) mg/dL Creatinine (0.66-1.25) mg/dL Est GFR (CKD-EPI)AfAm (>60 ml/min/1.73 sqM) Est GFR (CKD-EPI)NonAf (>60 ml/min/1.73 sqM) Glucose (74-99) mg/dL Calcium (8.4-10.2) mg/dL Magnesium (1.6-2.3) mg/dL Total Bilirubin (0.2-1.3) mg/dL AST (17-59) U/L ALT (21-72) U/L Alkaline Phosphatase (38-126) U/L Troponin I <0.012 (0.000-0.034) ng/mL NT-Pro-B Natriuret Pep pg/mL Total Protein (6.3-8.2) g/dL Albumin (3.5-5.0) g/dL Disposition Clinical Impression: Unstable angina Disposition: ADMITTED IP TO THIS HOSP Condition: Fair Is patient prescribed a controlled substance at d/c from ED?: No Referrals: Elizabeth Heard MD [Primary Care Provider] - 1-2 days
[2018-08-14 16:47] LABS: Basophils # (A) 0.1 k/uL (0-0.2); Basophils % (A) 1 %; Eosinophils # (A) 0.3 k/uL (0-0.7); Eosinophils % (A) 3 %; HGB 17.7 gm/dL (13.0-17.5); Lymphocytes # (A) 2.1 k/uL (1.0-4.8); Lymphocytes % (A) 25 %; MCH 29.1 pg (25.0-35.0); MCHC 31.8 g/dL (31.0-37.0); MCV 91.4 fL (80.0-100.0); Mean Platelet Volume 6.7; Monocytes # (A) 0.6 k/uL (0-1.0); Monocytes % (A) 7 %; Neutrophils # (A) 5.5 k/uL (1.3-7.7); Neutrophils % (A) 63 %; Platelet Count 240 k/uL (150-450); RBC 6.07 m/uL (4.30-5.90); RDW 12.9 % (11.5-15.5); WBC 8.7 k/uL (3.8-10.6)
[2018-08-14 16:56] LABS: HCT 55.5 % (39.0-53.0)
[2018-08-14 16:59] LABS: ALT 43 U/L (21-72); AST 28 U/L (17-59); Albumin 3.9 g/dL (3.5-5.0); Alkaline Phosphatase 98 U/L (38-126); Anion Gap 10 mmol/L; Blood Urea Nitrogen 11 mg/dL (9-20); Calcium 9.8 mg/dL (8.4-10.2); Carbon Dioxide 24 mmol/L (22-30); Chloride 104 mmol/L (98-107); Glucose 82 mg/dL (74-99); Magnesium 2.1 mg/dL (1.6-2.3); Potassium 4.3 mmol/L (3.5-5.1); Sodium 138 mmol/L (137-145); Total Bilirubin 0.5 mg/dL (0.2-1.3); Total Protein 7.2 g/dL (6.3-8.2)
[2018-08-14 17:53] LABS: D-Dimer 0.34 mg/L FEU (<0.60); INR 0.9 (<1.2); Partial Thromboplastin Time 24.4 sec (22.0-30.0); Prothrombin Time 9.7 sec (9.0-12.0)
--- NOTE | 2018-08-14 18:11 | CT ---
EXAMINATION TYPE: CT brain ann-marie steward con DATE OF EXAM: 08/14/2018 COMPARISON: CT brain 08/04/2017 HISTORY: Syncopal episode and epistaxis. Headache. Neck pain. CT DLP: 1531.9 mGycm Automated exposure control for dose reduction was used. TECHNIQUE: CT scan of the head and cervical spine are performed without contrast. FINDINGS: Ventricles have normal size. There is no mass effect nor midline shift. There is no sign of intracranial hemorrhage. Calvarium is intact. Cervical vertebra show mild straightening. There is mild disc space narrowing at C5-6 with spurring o f the endplates. Posterior elements are intact. Facet joints are intact. The skull base is intact. Pr evertebral soft tissues appear normal. IMPRESSION: Negative CT scan of the brain. No change. Negative CT scan of the cervical spine. No fracture. Mild spondylosis at C5-6.
[2018-08-14] MEDS ORDERED: HEPARIN SODIUM,PORCINE 5,000 UNIT/ML 1 ML VIAL IV PRN (18:31)
[2018-08-14] MEDS ORDERED: HEPARIN SODIUM,PORCINE 5,000 UNIT/ML 1 ML VIAL IV ONE (18:31)
[2018-08-14] MEDS ORDERED: NALOXONE 0.4 MG/ML 1 ML VIAL IV PRN (18:32)
[2018-08-14] MEDS ORDERED: HEPARIN SOD,PORK IN 0.45% NACL 25,000 UNIT in 0.45% NACL 1 250ML.BAG IV SCH (18:45)
--- NOTE | 2018-08-14 19:01 | XR ---
EXAMINATION TYPE: XR chest 2V DATE OF EXAM: 08/14/2018 COMPARISON: 03/14/2018 HISTORY: Chest pain TECHNIQUE: Frontal and lateral views of the chest are obtained. FINDINGS: Heart and mediastinum are normal. Lungs are clear of infiltrate. There is no heart failure . There is left axillary pacemaker. There are chest leads. There is no pleural effusion. IMPRESSION: No active cardiopulmonary disease. No change. Normal heart.
[2018-08-14 20:19] VITALS: BMI 38.0
[2018-08-14] MEDS: METOPROLOL TARTRATE 25 MG TAB PO SCH (20:36)
[2018-08-14] MEDS: metFORMIN 500 MG TAB PO SCH (20:36)
[2018-08-14 20:37] VITALS: RESP 18
[2018-08-14] MEDS ORDERED: PRAVASTATIN SODIUM 80 MG TAB PO SCH (21:00)
[2018-08-14 23:20] LABS: Creatine Kinase MB 0.5 ng/mL (0.0-2.4); Troponin I <0.012 ng/mL (0.000-0.034)
[2018-08-15] MEDS ORDERED: CAFFEINE CITRATE 60 MG/3 ML VIAL IV PRN (07:43)
[2018-08-15] MEDS ORDERED: REGADENOSON 0.4 MG/5 ML SYRINGE IV ONE (07:43)
--- NOTE | 2018-08-15 07:44 | CONS ---
CONSULTATION Mr. Mcdonough is a 52-year-old male with known history of ischemic cardiomyopathy, status post myocardial infarction and stenting of the LAD, followed by Dr. Salomón Garcia, status post ICD implantation, chronic tobacco use, who presented with symptoms of throat discomfort at times reminding him of the way he felt at the time of his myocardial infarction a few years ago, although the event was at rest. He has no change in his breathing. He has some dizziness. Two days ago, he was drinking coffee and he felt that the coffee went through his esophagus and he was coughing and he may have had a briefer syncopal episode, although not documented. The patient denies any exertional chest pain, although he is not very active physically. His breathing is unchanged. He has no PND, no orthopnea. No peripheral edema. Unfortunately he continues to smoke. He has a history of hypertension, hyperlipidemia, and diabetes. MEDICATIONS: His medications include metformin 500 mg twice a day, pravastatin 80 mg daily, spironolactone 25 mg daily, metoprolol tartrate 25 mg twice a day, Zestril 1.25 mg daily, furosemide 40 mg daily and aspirin once a day. REVIEW OF SYSTEMS: RESPIRATORY SYSTEM: He has a cough. No recent wheezing. He has chronic tobacco use. GI SYSTEM: no recent GI bleed. No peptic ulcer disease. SYSTEM: No dysuria or hematuria. NERVOUS SYSTEM: No stroke or seizure. PHYSICAL EXAMINATION: This is a 52-year-old male, alert, oriented, in no apparent distress. Blood pressure 114/60 with the heart rate in the 60s. HEAD: Normocephalic. EYES: Sclerae anicteric. NECK: Good upstroke. No bruit. No jugular venous distention. LUNGS: Clear to auscultation. HEART: Regular rate and rhythm. S1, S2. No S3 with a systolic ejection murmur heard at the base. No diastolic murmur. No rub. ABDOMEN: Soft, nontender. Positive bowel sounds. No organomegaly. EXTREMITIES: No edema. Intact distal pulses. LAB DATA: His last echocardiogram was done in August of 2017 revealed ejection fraction 30% to 35%. His EKG showed a sinus mechanism with atrial pacing and evidence of anterior apical myocardial infarction. His troponin less than 0.012 for 2 samples. BUN and creatinine 11 and 0.83. Hemoglobin of 17.7, white blood cell 4.3. NT proBNP of 505. IMPRESSION: 1. Throat discomfort of unclear etiology, has some atypical feature for ischemic heart disease. 2. History of coronary artery disease with ischemic cardiomyopathy. No evidence of recurrent ischemia. 3. Hyperlipidemia. 4. Diabetes. 5. Chronic tobacco use. RECOMMENDATION: I would recommend to continue present medical therapy. I will review the results of his last workup in the office. Patient thinks that he had a stress test done recently. We will review that. If there is no evidence of inducible ischemia, then no further cardiac workup will be needed at this time. The patient will continue on his beta marco as present. He will follow up with Dr. Garcia as planned on Sunday. I have encouraged him to stop smoking. MMODL / IJN: [id number] /
[2018-08-15] MEDS ORDERED: LISINOPRIL 2.5 MG TAB PO SCH (09:00)
[2018-08-15] MEDS ORDERED: FUROSEMIDE 40 MG TAB PO SCH (09:00)
[2018-08-15] MEDS ORDERED: ASPIRIN 81 MG PO SCH (09:00)
[2018-08-15] MEDS ORDERED: SPIRONOLACTONE 25 MG TAB PO SCH (09:00)
[2018-08-15 11:04] LABS: Basophils # (A) 0.1 k/uL (0-0.2); Basophils % (A) 1 %; Eosinophils # (A) 0.4 k/uL (0-0.7); Eosinophils % (A) 5 %; HCT 50.9 % (39.0-53.0); Lymphocytes # (A) 2.9 k/uL (1.0-4.8); Lymphocytes % (A) 35 %; MCH 29.4 pg (25.0-35.0); MCHC 31.5 g/dL (31.0-37.0); MCV 93.4 fL (80.0-100.0); Mean Platelet Volume 7.5; Monocytes # (A) 0.5 k/uL (0-1.0); Monocytes % (A) 7 %; Neutrophils # (A) 4.3 k/uL (1.3-7.7); Neutrophils % (A) 52 %; Platelet Count 240 k/uL (150-450); RBC 5.45 m/uL (4.30-5.90); RDW 13.1 % (11.5-15.5); WBC 8.3 k/uL (3.8-10.6)
[2018-08-15 11:58] VITALS: BP 113/78; PULSE 57; TEMP 97.4
[2018-08-15] MEDS: metFORMIN 500 MG TAB PO SCH (12:18)
[2018-08-15] MEDS: METOPROLOL TARTRATE 25 MG TAB PO SCH (12:19)
--- NOTE | 2018-08-15 13:02 | NM ---
EXAMINATION TYPE: NM stress lexiscan cardiolite DATE OF EXAM: 08/15/2018 COMPARISON: NONE HISTORY: Chest pain TECHNIQUE: After the intravenous administration of 10.3 mCi Tc 99m Sestamibi - Cardiolite resting SP ECT images acquired 130 minutes post injection. The patient received 0.4mg Lexiscan, 25.2 mCi Tc 99m Sestamibi - Stress images obtained [address] injection FINDINGS: Review of stress and rest SPECT images demonstrates decreased radio pharmaceutical uptake along the a nterior wall, inferior septal left ventricle on stress and rest images. Gated analysis shows global h ypokinesis with an estimated left ventricular ejection fraction of 37%. IMPRESSION: No scintigraphic evidence for reversible ischemia. Findings compatible with prior infarctions in the distribution described.
--- NOTE | 2018-08-15 15:04 | P.HPIM ---
History of Present Illness This is a combined H&P and discharge summary Diagnoses: Feeling of throat tightness, resolved Negative stress test for reversible ischemia History of coronary artery disease with stent Hypertension, essential Hyperlipidemia Hospital course This is a pleasant 52 years old male with past medical history of coronary artery disease with previous history of cardiac catheterization and stents, hyperlipidemia, hypertension, who presents because of feeling his throat closing up several times each 1 glasses for 1 or 2 seconds of one-day duration. Patient denies upper chest pain or dyspnea. No chest discomfort or epigastric abdominal discomfort. No joint pain or back pain. No palpitation. Vitas looks stable. Labs are unremarkable. Patient has negative troponins. We'll recommend a stress test which came back negative for reversible ischemia. Patient's symptoms improved and he is back to his baseline and he wants to be discharged home. Service Tester after evaluating the patient he cleared him for discharge. Problems and management plan was discussed with the patient and he verbalized understanding and acceptance Patient was found stable and can be discharged guarded prognosis however he needs follow-up as an outpatient. Patient states that he has an appointment with his stuntman Dr. Garcia tomorrow at 3:13 PM and that he has the contact information. Patient has been evaluated by stuntman. Also patient was instructed to follow up with his PCP Dr. keenan in one week and he agrees. Patient states he has all medication at home and He Does Not Want Any No Prescription Review of systems CONSTITUTIONAL: No fever, no malaise, no fatigue. HEENT: No recent visual problems or hearing problems. Denied any sore throat. CARDIOVASCULAR: No orthopnea, PND, no palpitations, no syncope. PULMONARY: No shortness of breath, no cough, no hemoptysis. GASTROINTESTINAL: No diarrhea, no nausea, no vomiting, no abdominal pain. Normoactive bowel sounds. NEUROLOGICAL: No headaches, no weakness, no numbness. HEMATOLOGICAL: Denies any bleeding or petechiae. GENITOURINARY: Denies any burning micturition, frequency, or urgency. MUSCULOSKELETAL/RHEUMATOLOGICAL: Denies any joint pain, swelling, or any muscle pain. ENDOCRINE: Denies any polyuria or polydipsia. Medication: Aspirin, caffeine, Lasix, lisinopril, metformin, metoprolol, pravastatin, Aldactone. physical exam Gen.: Patient alert awake and oriented X 3, NOT IN DISTRESS CVS: s1-s2, RRR, no murmur CHEST:bilateral CTA, no wheezing or crepitation Abdomen: Soft, no tenderness, no distention, positive bowel sounds Extremities: No leg edema or induration Gen: patient is a AAOx3, no distress CVS: S1-S2, RRR, no murmur Lungs: B/L CTA, no wheezing Abdomen: soft, no distention, no tenderness, positive bowel sounds Extremity: no leg edema or induration Time spent more than 35 minutes Past Medical History Past Medical History: Coronary Artery Disease (CAD), Hyperlipidemia, H ypertension, Myocardial Infarction ([place]), Myocardial Infarction (non Q-wave) Additional Past Medical History / Comment(s): may 2013, jun, jul 2013. see Dr Mayorga's H&P Last Myocardial Infarction Date:: jul 2013 History of Any Multi-Drug Resistant Organisms: None Reported Past Surgical History: AICD, Appendectomy, Heart Catheterization With Stent Additional Past Surgical History / Comment(s): jun 2013 with heart stents; jul 2013 defib left upper chest, right big toe amputation due to work injury Past Anesthesia/Blood Transfusion Reactions: No Reported Reaction Date of Last Stent Placement:: jun 2013 Type of Cardiac Device: AICD Device Placement Date:: jul 2013 Past Psychological History: No Psychological Hx Reported Additional Psychological History / Comment(s): He is not , lives with his father who is a primary caregiver for. Used to work in construction and in factory. Relates to prior utilization of recreational drugs and alcohol in the past. He does not have experience. He does not have animal exposures. Smoking Status: Current some day smoker Past Alcohol Use History: None Reported Additional Past Alcohol Use History / Comment(s): has smoked since age 15 6- cigarettes/day Past Drug Use History: None Reported - Past Family History Mother Family Medical History: Diabetes Mellitus Family Additional Family Medical History / Comment(s): History of CAD in his uncles and that Medications and Allergies Home Medications Medication Instructions Recorded Confirmed Type Furosemide [Lasix] 40 mg PO DAILY 02/01/14 08/14/18 History Lisinopril [Zestril] 1.25 mg PO DAILY 02/01/14 08/14/18 History Pravastatin Sodium 80 mg PO HS 02/06/14 08/14/18 History Aspirin 81 mg PO DAILY #30 chewable 02/09/14 08/14/18 Rx Metoprolol Tartrate 25 mg PO BID 03/01/17 08/14/18 History Spironolactone [Aldactone] 25 mg PO DAILY 03/01/17 08/14/18 History metFORMIN HCL [Glucophage] 500 mg PO BID 08/14/18 08/14/18 History Allergies Allergy/AdvReac Type Severity Reaction Status Date / Time No Known Allergies Allergy Verified 08/14/18 15:39 Physical Exam Vitals: Vital Signs Temp Pulse Pulse Resp BP BP BP 08/15/18 11:56 97.4 F L 57 L 18 113/78 08/15/18 07:05 97.7 F 52 L 18 97/63 08/15/18 05:23 97.7 F 66 18 114/63 08/15/18 04:00 59 L 18 08/15/18 00:00 59 L 18 08/14/18 23:31 97.4 F L 59 L 18 118/73 08/14/18 21:09 69 18 08/14/18 20:00 97.5 F L 69 18 128/79 08/14/18 19:44 59 L 16 110/73 08/14/18 19:00 72 96/67 08/14/18 18:30 55 L 101/85 08/14/18 18:00 61 100/60 08/14/18 17:30 99/78 08/14/18 17:00 59 L 104/76 08/14/18 16:30 92 104/74 08/14/18 16:02 18 08/14/18 16:00 75 122/80 08/14/18 15:34 77 08/14/18 15:13 98.4 F 60 16 126/81 Pulse Ox 08/15/18 11:56 100 08/15/18 07:05 96 08/15/18 05:23 98 08/15/18 04:00 08/15/18 00:00 08/14/18 23:31 96 08/14/18 21:09 08/14/18 20:00 98 08/14/18 19:44 99 08/14/18 19:00 100 08/14/18 18:30 100 08/14/18 18:00 100 08/14/18 17:30 08/14/18 17:00 98 08/14/18 16:30 97 08/14/18 16:02 08/14/18 16:00 97 08/14/18 15:34 08/14/18 15:13 98 Intake and Output 08/14/18 08/15/18 08/15/18 22:59 06:59 14:59 Intake Total 72.5 Balance 72.5 Intake: Intake, IV Titration 72.5 Amount Heparin Sod,Pork in 0.45% 72.5 NaCl 25,000 unit In 0.45 % NaCl 1 250ml.bag @ 8.3 UNITS/KG/HR 9.977 mls/hr IV .Q24H ANA Rx#: [id number] Other: Voiding Method Toilet # Voids 1 1 Weight 120.202 kg Results CBC & Chem 7: 08/15/18 07:15 08/14/18 16:34 Labs: Abnormal Lab Results - Last 24 Hours (Table) 08/14/18 08/15/18 Range/Units 16:34 02:02 RBC 6.07 H (4.30-5.90) m/uL Hgb 17.7 H (13.0-17.5) gm/dL Hct 55.5 H (39.0-53.0) % APTT 41.0 H (22.0-30.0) sec Thrombosis Risk Factor Assmnt - Choose All That Apply Any of the Below Risk Factors Present?: Yes Each Factor Represents 1 point: Age 41-60 years Other Risk Factors: No Thrombosis Risk Factor Assessment Total Risk Factor Score: 1 Thrombosis Risk Factor Assessment Level: Low Risk
--- NOTE | 2018-08-15 15:12 | EST ---
EXERCISE STRESS AGE: 52 SEX: M HT: @@ WT: @@ PROTOCOL: Lexiscan Cardiolite Stress Test HEART RATE REST: 77 BLOOD PRESSURE REST: 95/67 MAXIMUM HEART RATE ACHIEVED: @@ MAXIMUM BLOOD PRESSURE: @@ INDICATIONS: @@ CLINICAL INFORMATION: Baseline rhythm is sinus mechanism rate of 77, occasional PACs with evidence of paced atrial rhythm. Baseline blood pressure 95/67 mmHg. Patient received infusion of Lexiscan. Electrocardiographic monitoring revealed no evidence of diagnostic ischemic ST deviation. Cardiolite was injected per protocol. CONCLUSION: 1. Nondiagnostic electrocardiographic response to Lexiscan. 2. Nuclear images will be reported separately. MMODL / IJN: [id number] /
== END 2018-08-15 16:31 | disposition home or self-care (01) ==
LOC: EC 15:07 → 1SOBS 18:32
PROVIDERS: ADMIT Internal Medicine; ATTEND Internal Medicine
DX: J39.2 Other diseases of pharynx (principal); R07.89 Other chest pain; R04.0 Epistaxis; R42 Dizziness and giddiness; I25.2 Old myocardial infarction; I25.10 Atherosclerotic heart disease of native coronary artery without angina pectoris; I25.5 Ischemic cardiomyopathy; E11.9 Type 2 diabetes mellitus without complications; I10 Essential (primary) hypertension; E78.5 Hyperlipidemia, unspecified; F17.210 Nicotine dependence, cigarettes, uncomplicated; Z95.5 Presence of coronary angioplasty implant and graft; Z95.810 Presence of automatic (implantable) cardiac defibrillator; Z79.899 Other long term (current) drug therapy; Z79.84 Long term (current) use of oral hypoglycemic drugs; Z79.82 Long term (current) use of aspirin; Z83.3 Family history of diabetes mellitus; W19.XXXA Unspecified fall, initial encounter
CPT/HCPCS: 96366 ×2; 96376 ×2; 96365; 99285; 36415; 93005; 93017; 85379; 83880; 80053; 82550 ×2; 82553 ×2; 83735; 84484; 85025 ×2; 85610; 85730 ×2; 71046; 72125; 70450; 78452; G0378 ×2; A9500; J1644 ×3; J2785

== ENCOUNTER → 2018-08-20 | Outpatient (CLI) | payer MEDICARE ==
--- NOTE | 2018-08-20 14:40 | US ---
EXAMINATION TYPE: US kidneys/renal and bladder DATE OF EXAM: 08/20/2018 COMPARISON: US 01/07/2015 CLINICAL HISTORY: R31.29 Hematuria. EXAM MEASUREMENTS: Right Kidney: 10.6 x 5.4 x 5.0 cm Left Kidney: 10.9 x 5.7 x 5.8 cm Right Kidney: No hydronephrosis or masses seen Left Kidney: No hydronephrosis or masses seen Bladder: wnl Bilateral Jets seen: Yes There is no evidence for hydronephrosis at this point in time. No nephrolithiasis is seen. No leslie s are identified. The urinary bladder is anechoic. Bilateral ureteral jets are seen. IMPRESSION: No hydronephrosis or nephrolithiasis. If there is further concern or persistent hematuria CT urogram could be performed.
== END | disposition home or self-care (01) ==
LOC: RADUSWWP 13:52
PROVIDERS: ATTEND Family Medicine
DX: R31.29 Other microscopic hematuria (principal)
CPT/HCPCS: 76770

== ENCOUNTER → 2020-09-10 | Outpatient (CLI) | payer MEDICARE ==
[2020-09-10 23:06] LABS: HCT 52.8 % (39.6-50.0); HGB 17.2 g/dL (13.0-17.0); MCHC 32.6 g/dL (32.0-37.0); MCV 92.1 fL (80.0-97.0); Mean Platelet Volume 9.9 fL (9.5-12.2); Platelet Count 304 X 10*3/uL (140-440); RBC 5.73 X 10*6/uL (4.40-5.60); RDW 13.2 % (11.5-14.5); WBC 10.84 X 10*3/uL (4.50-10.00)
[2020-09-11 02:22] LABS: African American GFR (CKD) 97.1 (60.0-200.0); Anion Gap 10.8 mmol/L (4.00-12.00); Carbon Dioxide 23.2 mmol/L (21.6-31.8); Non-African American GFR(CKD) 83.8 (60.0-200.0); Potassium 4.6 mmol/L (3.5-5.5)
== END | disposition home or self-care (01) ==
LOC: LABWHC1 14:41
PROVIDERS: ATTEND Internal Medicine Clinical Cardiac Electrophysiology
DX: Z01.818 Encounter for other preprocedural examination (principal); I25.5 Ischemic cardiomyopathy
CPT/HCPCS: 36415; 80051; 82565; 84520; 85027